=== PATIENT | female | born 1995 | race Asian ===

== ENCOUNTER 2024-02-22 13:02 | Emergency (ER) | payer MEDICAID ==
[~2024-02-22] VITALS: Ht 152.4 cm; Wt 73.2 kg
[2024-02-22 14:03] VITALS: BP 107/63; PULSE 91; RESP 15; TEMP 98.1; O2SAT 100
== END 2024-02-22 14:06 | disposition home or self-care (01) ==
LOC: ER 13:02
DX: H53.8 Other visual disturbances (principal)
CPT/HCPCS: 99282